=== PATIENT | female | born 1960 ===

== ENCOUNTER 2021-05-08 05:03 | Day surgery (SDC) | payer OTHER ==
[2021-05-06 12:26] VITALS: BMI 39.2
[2021-05-08 11:20] VITALS: TEMP 97.5
[2021-05-08 11:57] VITALS: PULSE 82
[2021-05-08 12:12] VITALS: BP 110/71
== END 2021-05-08 12:35 | disposition home or self-care (01) ==
LOC: JASU-ENDO 05:03
PROVIDERS: ATTEND Internal Medicine Gastroenterology
PROC: 0DJD8ZZ Inspection of Lower Intestinal Tract, Via Natural or Artificial Opening Endoscopic (ICD-10-PCS; principal; 2021-05-08 11:15)
DX: Z12.11 Encounter for screening for malignant neoplasm of colon (principal)